=== PATIENT | female | born 1960 | race Caucasian/White ===

== ENCOUNTER 2018-02-14 17:12 | Observation (INO) ==
[2018-02-14] MEDS ORDERED: Ketorolac 10 MG Tablet PO ONE (19:02)
[2018-02-14] MEDS ORDERED: Sod Chloride 0.9% Inj 1,000 ML IV.SIG ONE (19:02)
[2018-02-14] MEDS ORDERED: Morphine Inj 4 MG/ML Vial IV.PUSH ONE (19:02)
--- NOTE | 2018-02-14 20:11 | ED ---
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 Patient states it started on the right side and now feels like a band across her abdomen and her back. She endorses decreased appetite. She states that she is not passing gas. She denies fever, chills, nausea, vomiting, constipation or diarrhea. She denies dysuria or hematuria. She complains of feeling bloated. She had a normal bowel movement on Tuesday. No bowel movement Tuesday. She states that she took a stool softener, laxative and enema and has had watery stools since then. She also complains of a new onset rash on the abdomen. It is nonpruritic. 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 She is followed by Dr. Ortega at the [facility] in [place]. She states she has an upcoming 1 year post transplant appointment upcoming in March. She was seen on outpatient basis at the [facility] in [place] today, had lab work and a CT and was sent here for admission. Related Data Home Medications Medication Instructions Recorded Confirmed aspirin [Aspir-81] 81 mg PO DAILY 02/14/18 02/14/18 atenolol 50 mg PO HS 02/14/18 02/14/18 benazepril 40 mg PO DAILY 02/14/18 02/14/18 cholecalciferol (vitamin D3) 5,000 unit PO DAILY 02/14/18 02/14/18 [Vitamin D3] cyclosporine 100 mg PO BID 02/14/18 02/14/18 dexamethasone 0.5 mg PO Q6H 02/14/18 02/14/18 fluconazole 200 mg PO DAILY 02/14/18 02/14/18 furosemide 20 mg PO DAILY 02/14/18 02/14/18 gabapentin 400 mg PO DAILY 02/14/18 02/14/18 lamotrigine 300 mg PO HS 02/14/18 02/14/18 levothyroxine 150 mcg PO DAILY 02/14/18 02/14/18 magnesium oxide 400 mg PO BID 02/14/18 02/14/18 exwlmhheggwt-xly-qukx-FA-vit K 02/14/18 [Multi-Day Plus Minerals] paroxetine HCl 40 mg PO DAILY 02/14/18 02/14/18 pravastatin 20 mg PO HS 02/14/18 02/14/18 ropinirole 5 mg PO TID 02/14/18 02/14/18 sulfamethoxazole-trimethoprim 1 tab PO DAILY 02/14/18 02/14/18 [Bactrim DS] valacyclovir 500 mg PO BID 02/14/18 02/14/18 zolpidem 10 mg PO HS 02/14/18 02/14/18 Allergies Allergy/AdvReac Type Severity Reaction Status Date / Time penicillin G Allergy Swelling Verified 02/14/18 17:31 of Lip/Tongue/Throat Review of Systems Except as stated in HPI: all other systems reviewed are negative [facility] Medical History Medical History History of hysterectomy (Acute) 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 SKIN: Focused skin assessment warm/dry. Scattered, scant, maculopapular, blanching, erythematous rash across the abdomen. HEAD: Normocephalic. EYES: No scleral icterus. No injection or drainage. NECK: Supple, trachea midline. No JVD or lymphadenopathy. CARDIOVASCULAR: Regular rate and rhythm without murmurs, gallops, or rubs. RESPIRATORY: Breath sounds equal bilaterally. No accessory muscle use. GASTROINTESTINAL: Abdomen soft, mildly distended in the upper quadrants. Tender to palpation in bilateral upper quadrants. Hypoactive bowel sounds. MUSCULOSKELETAL: No cyanosis, or edema. BACK: Nontender without obvious deformity. No CVA tenderness. Course Initial Documented Vital Signs Temperature 98.3 F 02/14/18 17:31 Pulse Rate 89 02/14/18 17:31 Respiratory Rate 20 07/17/18 17:31 Blood Pressure 155/57 H 02/14/18 17:31 Pulse Oximetry 98 02/14/18 17:31 Last Documented Vital Signs Temperature 98.3 F 02/14/18 17:31 Pulse Rate 90 02/14/18 18:52 Respiratory Rate 24 02/14/18 18:52 Blood Pressure 176/71 H 02/14/18 18:52 Pulse Oximetry 97 02/14/18 19:02 Medical Decision Making LAURIE Attestation LAURIE supervised visit: Yes Attestation: I, Dr. Wang, have reviewed the advance practice practitioner's documentation and am in agreement, met with the patient face to face, made the diagnosis, and the medical decision making was done by me. The patient was initially evaluated by Dinora, the physician certified registered dental assistant. Please see their complete history and physical. *My assessment and Findings: The patient presents with history of abdominal pain and bloating that began 3 days ago. The patient's past medical history is significant for having CML status post bone marrow transplant in March 2017 with a history of complications of yexdv-nylevr-qwmm disease. The patient is followed by the [facility] for her oncology care. The patient reports that she had outpatient testing earlier today that was abnormal was told to come to the emergency department for admission. The patient's examination is remarkable for a midepigastric abdominal pain. During the course of the patient's emergency department visit, the patient's history, examination, and differential diagnosis were reviewed with the patient. The patient was placed on a surveillance system monitor with oximetry and frequent blood pressure monitoring. The patient had IV access obtained and blood work sent for analysis. The patient was initially provided pain medication, normal saline IV fluids. Radiology studies were reviewed and remarkable for a CT scan done earlier today as an outpatient that shows wall thickening of the second portion of the duodenum with abnormal inflammatory changes surrounding the pancreas and extending to the hepatoduodenal ligament. The patient's results were discussed with the patient, including the plan of care. I explained that further testing and/ or monitoring is indicated based on the patient's history, examination, and/ or laboratory findings. Therefore, I recommended admission for additional evaluation. The patient expressed understanding and was agreeable with this plan. The patient was admitted to the hospital in guarded condition and sent to a bed under the care of service. 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 She was seen on outpatient basis today and sent here for admission. She is followed by a oncologist at the [facility] in [place]. She has a history of graft- versus-host disease, last episode 4 months ago. She states that she was placed on chemotherapy after steroids failed to improve her symptoms. She provides lab work and CT from todays outpatient visit. CT performed on outpatient basis reveals: 1.Wall thickening of the second portion of the duodenum with abnormal inflammation surrounding the pancreas and extending along the hepatoduodenal ligament and extending into the small bowel mesentery. Differential diagnostic considerations include pancreatitis, duodenitis, yokkv-oyqygo-ekkr disease given the history of bone marrow transplant and immunosuppression. Additionally infectious process should be considered. 2. Moderate to severe atherosclerotic disease. Lab work drawn on outpatient basis: CBC: WBC 13.9. RBC 3.72. Hemoglobin 12.2. Hematocrit 36.7. Absolute neutrophils 11.9. CMP: Glucose 35. BUN 18. Creatinine 0.9. LFTs: Bilirubin 1.1. Alk phos 222. AST 60. ALT 66. Amylase 90. Lipase 206. Patient's afebrile on presentation. Physical exam reveals tenderness in the bilateral upper abdominal quadrants. Bowel sounds are hypoactive. IV was established. Patient was administered 4 mg morphine, 4 mg Zofran ODT and 1 L normal saline. Consult placed with the on-call oncologist. I discussed the patient with Dr. Alexander. She agrees to accept the patient to the medicine service. Please see medicine and oncology notes for disposition. Differential Diagnosis Differential Diagnosis: Gastroenteritis versus bowel obstruction versus paralytic ileus versus pancreatitis versus biliary obstruction versus graft- versus-host disease versus other Discharge Plan Discharge Disposition Patient Disposition: 30 Still Patient Discharge Condition Condition: Stable Discharge Details Diagnosis: Abdominal pain Physicians Team ED Provider: Yisel Wang ED Midlevel Provider: Dinora Magaña Primary Care Provider: UNKNOWN, Attending Provider: Jaja Alexander Other Providers: Roddy Steele Status ED Status: Admitted Observation Patient
[2018-02-14] MEDS ORDERED: Bisacodyl 10 MG Supp RECTAL PRN (21:33)
[2018-02-14] MEDS ORDERED: Temazepam 15 MG Capsule PO PRN (21:33)
--- NOTE | 2018-02-14 21:53 | P.HP ---
History of Present Illness Service: [facility] Primary Care Physician: UNKNOWN Chief Complaint: abd pain History of Present Illness: 57-year-old female with a past medical history significant for CML status post bone marrow transplant, recent diagnosis of eleqe-qakapd-hpdp disease (finished chemotherapy treatment in December), hypertension, hyperlipidemia, hypothyroidism and restless leg syndrome presents to the emergency department from her primary care provider's office. The patient was seen by her primary care doctor because she had abdominal pain and chills that began on Tuesday night. The pain is worse with palpation and has been progressively worsening since Tuesday. She endorses multiple bouts of emesis on Tuesday. Outpatient labs showed a mild leukocytosis with left shift and CT of the abdomen/pelvis significant for wall thickening of the second portion of the duodenum with abnormal inflammation surrounding the pancreas and hepatoduodenal ligament extending into the mesentery. The patient denies any chest pain or shortness of breath. Positive diarrhea after taking laxatives and stool softeners. No lateralizing signs/ symptoms. Inpatient Certification: I certify that the inpatient services were ordered in accordance with Medicare regulations governing the order. This includes certification that hospital inpatient services are reasonable and necessary and in the case of services not specified as inpatient-only under 42 CFR 419.22(n), that they are appropriately provided as inpatient services in accordance to with the 2-midnight benchmark under 43 CFR 412.3(e) Review of Systems All other systems reviewed negative except as stated in HPI [facility] - History History Provided By: Patient - Medical History Medical History: Medical History (Last Updated 02/14/18 @ 19:01 by Mirna Pritchett RN) History of hysterectomy Host versus graft disease Hypertension Leukemia - Surgical History Surgical History: Surgical History (Last Updated 02/14/18 @ 19:01 by Mirna Pritchett RN) History of bone marrow transplant History of cholecystectomy - Tobacco History Tobacco Use In Past 30 Days: No Smoking Status: Former smoker Tobacco Type: Cigarettes - Alcohol History How Often Do You Have a Drink Containing Alcohol: Never - Travel History Recent Travel in the [place] Within the Last 8 Weeks: No Recent Travel Out of the Country Within the Last 8 Weeks: No - Immunization History Tetanus Immunization: Unsure Hx Influenza Vaccine This Season: Yes Medications and Allergies Active Medications: Active Medications Al Hydroxide/Mg Hydroxide (Milk Of Magnandre Liq) 30 ml PO Q12H PRN PRN Reason: Mild Constipation Atenolol (Tenormin) 50 mg PO HS [facility] Bisacodyl (Dulcolax Supp) 10 mg RECTAL DAILY PRN PRN Reason: SEVERE CONSITIPATION Cyclosporine (Sandimmune Liq) 100 mg PO BID [facility] Fluconazole (Diflucan) 200 mg PO DAILY [facility] Furosemide (Lasix) 20 mg PO DAILY [facility] Gabapentin (Neurontin) 400 mg PO DAILY [facility] Lactulose (Lactulose Liq) 30 ml PO DAILY PRN PRN Reason: SEVERE CONSITIPATION Levothyroxine Sodium (Synthroid) 150 mcg PO DAILY [facility] Non-Formulary Medication (Benazepril [Benazepril]) 40 mg PO DAILY [facility] Non-Formulary Medication (Dexamethasone [Dexamethasone]) 0.5 mg PO Q6H [facility] Non-Formulary Medication (Lamotrigine [Lamotrigine]) 300 mg PO HS [facility] Non-Formulary Medication (Ropinirole [Ropinirole]) 5 mg PO TID [facility] Ondansetron HCl (Zofran Inj) 4 mg IV.PUSH Q6H PRN PRN Reason: NAUSEA OR VOMITING Paroxetine HCl (Paxil) 40 mg PO DAILY [facility] Pravastatin Sodium (Pravachol) 20 mg PO HS [facility] Senna/Docusate Sodium (Chantel-Colace) 1 tab PO BID [facility] Sennosides (Senokot) 17.2 mg PO Q12H PRN PRN Reason: Moderate Constipation Temazepam (Restoril) 15 mg PO HS PRN PRN Reason: INSOMNIA Trimethoprim/Sulfamethoxazole (Bactrim Ds) 1 tab PO DAILY [facility] Valacyclovir HCl (Valtrex) 500 mg PO BID [facility] Zolpidem Tartrate (Ambien) 10 mg PO HS [facility] Allergies Allergy/AdvReac Type Severity Reaction Status Date / Time penicillin G Allergy Swelling Verified 02/14/18 17:31 of Lip/Tongue/Throat Home Medications Medication Instructions Recorded Confirmed Type aspirin [Aspir-81] 81 mg PO DAILY 02/14/18 02/14/18 History atenolol 50 mg PO HS 02/14/18 02/14/18 History benazepril 40 mg PO DAILY 02/14/18 02/14/18 History cholecalciferol (vitamin D3) 5,000 unit PO DAILY 02/14/18 02/14/18 History [Vitamin D3] cyclosporine 100 mg PO BID 02/14/18 02/14/18 History dexamethasone 0.5 mg PO Q6H 02/14/18 02/14/18 History fluconazole 200 mg PO DAILY 02/14/18 02/14/18 History furosemide 20 mg PO DAILY 02/14/18 02/14/18 History gabapentin 400 mg PO DAILY 02/14/18 02/14/18 History lamotrigine 300 mg PO HS 02/14/18 02/14/18 History levothyroxine 150 mcg PO DAILY 02/14/18 02/14/18 History magnesium oxide 400 mg PO BID 02/14/18 02/14/18 History cvjcrlsbcquy-fia-iljd-FA-vit K 02/14/18 History [Multi-Day Plus Minerals] paroxetine HCl 40 mg PO DAILY 02/14/18 02/14/18 History pravastatin 20 mg PO HS 02/14/18 02/14/18 History ropinirole 5 mg PO TID 02/14/18 02/14/18 History sulfamethoxazole-trimethoprim 1 tab PO DAILY 02/14/18 02/14/18 History [Bactrim DS] valacyclovir 500 mg PO BID 02/14/18 02/14/18 History zolpidem 10 mg PO HS 02/14/18 02/14/18 History Exam Vital signs: Vital Signs 02/14/18 17:31 02/14/18 18:52 02/14/18 19:02 Temperature 98.3 F Pulse Rate 89 90 Respiratory Rate 20 24 Blood Pressure 155/57 H 176/71 H Pulse Oximetry 98 97 97 Intake & Output 02/14/18 02/14/18 02/15/18 06:59 18:59 06:59 Weight 89.811 kg Other: Date of Last Bowel Movement 02/14/18 Narrative: Gen.: No acute distress Head: Normocephalic. Atraumatic. EENT: Pupils equal round and reactive to light. Nose without drainage. Airway intact. Throat without injection. Cardiovascular: Regular rate and rhythm. No murmurs, rubs or gallops. Respiratory: Lungs clear to auscultation bilaterally. No wheezes or rhonchi. Abdomen: Soft, diffusely tender to palpation, nondistended. No peritoneal signs. Musculoskeletal: No gross deformities. No edema. Skin: No obvious rashes or erythema. Neuro: Sensory and motor grossly intact. Cranial nerves II through XII grossly intact. Psych: Appropriate mood and affect Caprini VTE Risk Assessment Caprini VTE Risk Assessment: No/Low Risk (score <= 1) Caprini Risk Assessment Model: Point Value = 1 Point Value = 2 Point Value = 3 Point Value = 5 Age 41-60 Minor surgery BMI > 25 kg/m2 Swollen legs Varicose veins or History of unexplained or recurrent spontaneous Oral contraceptives or hormone replacement Sepsis (< 1 month) Serious lung disease, including pneumonia (< 1 month) Abnormal pulmonary function Acute myocardial infarction Congestive heart failure (< 1 month) History of inflammatory bowel disease Medical patient at bed rest Age 61-74 Arthroscopic surgery Major open surgery (> 45 min) Laparoscopic surgery (> 45 min) Malignancy Confined to bed (> 72 hours) Immobilizing plaster cast Central venous access Age >= 75 History of VTE Family history of VTE Factor V Leiden Prothrombin [id number] Lupus anticoagulant Anticardiolipin antibodies Elevated serum homocysteine Heparin-induced thrombocytopenia Other congenital or acquired thrombophilia Stroke (< 1 month) Elective arthroplasty Hip, pelvis, or leg fracture Acute spinal cord injury (< 1 month) Prophylaxis Regimen: Total Risk Factor Score Risk Level Prophylaxis Regimen 0-1 Low Early ambulation 2 Moderate Order ONE of the following: *Sequential Compression Device (SCD) *Heparin 5000 units SQ BID 3-4 Higher Order ONE of the following medications: *Heparin 5000 units SQ TID *Enoxaparin/Lovenox 40 mg SQ daily (WT < 150 kg, CrCl > 30 mL/min) *Enoxaparin/Lovenox 30 mg SQ daily (WT < 150 kg, CrCl > 10-29 mL/min) *Enoxaparin/Lovenox 30 mg SQ BID (WT < 150 kg, CrCl > 30 mL/min) AND/OR *Sequential Compression Device (SCD) 5 or more Highest Order ONE of the following medications: *Heparin 5000 units SQ TID (Preferred with Epidurals) *Enoxaparin/Lovenox 40 mg SQ daily (WT < 150 kg, CrCl > 30 mL/min) *Enoxaparin/Lovenox 30 mg SQ daily (WT < 150 kg, CrCl > 10-29 mL/min) *Enoxaparin/Lovenox 30 mg SQ BID (WT < 150 kg, CrCl > 30 mL/min) AND *Sequential Compression Device (SCD) Assessment and Plan - Plan Assessment/plan: 1. Abdominal pain Outpatient CT scan results as documented in HPI Differential diagnosis includes pancreatitis, duodenitis, graft versus host disease or infectious process Patient with mild leukocytosis despite immunosuppression Mild transaminitis with total bilirubin of 1.0 Cipro/Flagyl Pain control 2. CML status post bone marrow transplant/history of ectdg-jiokxu-buhb disease Patient's oncologist is Dr. Ortega at [facility], Attempts were made to contact Dr. Ortega prior to the patient coming to the hospital however he was unable to be reached Patient completed chemotherapy for graft versus host disease in December of this year Oncology consulted, appreciate recommendations Continue home immunosuppressants 3. Hypertension/hyperlipidemia/hypothyroidism/restless leg syndrome Continue home medications FEN Regular diet Electrolytes: Monitor and replete as needed
[2018-02-14] MEDS: Ciprofloxacin 400 MG/200 ML 400 MG/200 ML PIGGYBACK IV.SIG SCH (22:24)
[2018-02-14] MEDS: Morphine Inj 4 MG/ML Vial IV.PUSH PRN (22:27)
[2018-02-15 05:17] LABS: Baso % (Auto) 0.2 % (0.0-2.0); Eos # (Auto) 0.5 th/mm3 (0.0-0.4); Hematocrit 33.7 % (35.0-46.0); Hemoglobin 11.2 gm/dL (11.6-15.3); Lymph % (Auto) 6.4 % (9.0-44.0); Mean Corpuscular HGB Conc 33.2 % (32.0-36.0); Mean Corpuscular Hemoglobin 31.6 pg (27.0-34.0); Mean Platelet Volume 8.4 fL (7.0-11.0); Mono # (Auto) 1.7 th/mm3 (0.0-0.9); Mono % (Auto) 10.5 % (0.0-8.0); Neut # (Auto) 12.6 th/mm3 (1.8-7.7); Neut % (Auto) 79.9 % (16.0-70.0); Platelet Count 212 th/mm3 (150-450); Red Blood Count 3.54 mil/mm3 (4.00-5.30); Red Cell Distribution Width 19.7 % (11.6-17.2); White Blood Count 15.8 th/mm3 (4.0-11.0)
[2018-02-15 05:34] LABS: Alanine Aminotransferase 45 U/L (10-53); Albumin 3.1 g/dL (3.4-5.0); Anion Gap 9 meq/L (5-15); Aspartate Aminotransferase 32 U/L (15-37); Blood Urea Nitrogen 21 mg/dL (7-18); Calcium 8.4 mg/dL (8.5-10.1); Carbon Dioxide 25.8 meq/L (21.0-32.0); Chloride 106 meq/L (98-107); Glomerular Filtration Rate 48 mL/min (>89); Glucose,Random 108 mg/dL (74-106); Potassium 4.1 meq/L (3.5-5.1); Sodium 141 meq/L (136-145)
[2018-02-15 05:35] LABS: Alkaline Phosphatase 204 U/L (45-117); Total Protein 6.1 g/dL (6.4-8.2)
[2018-02-15] MEDS ORDERED: Levothyroxine 150 MCG Tablet PO SCH (06:00)
[2018-02-15] MEDS: Morphine Inj 4 MG/ML Vial IV.PUSH PRN (06:23)
--- NOTE | 2018-02-15 08:51 | MB ---
cc: Roddy Steele MD DATE: 02/15/2018 ATTENDING PHYSICIAN: Dr. 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 HISTORY OF PRESENT ILLNESS: The patient is a 57-year-old female with a history of chronic myelogenous leukemia, status post allogenic bone marrow transplant in November of 2016 who presented to the hospital with a complaint of abdominal pain and chills. She stated that her pain is in the upper abdomen and radiates to the back. It is constant pain associated with chills. She had nausea and vomiting on Tuesday. She had diarrhea 4 times yesterday, which was partly due to a laxative. She went to see her primary physician, Dr. Medina and sent for a CT scan which showed thickening of the second portion of duodenum and inflammatory changes surrounding the pancreas and hepatoduodenal ligament area and extending to the mesentery. She was also noted to have leukocytosis. The nurse practitioner try to reach Dr. Ortega at [facility] yesterday, but could not reach him. The patient was directed to the hospital and subsequently admitted. The patient stated she had a graft versus host disease involving the entire GI tract. She was treated with some immunosuppressive regimen in November. She is still on cyclosporine. She was also on high-dose prednisone, but tapered off around November. PAST MEDICAL HISTORY: 1. Chronic myelogenous leukemia. 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 3. Hypertension. 4. Hyperlipidemia. 5. Hypothyroidism. 6. Restless leg syndrome. PAST SURGICAL HISTORY: 1. Appendectomy. 2. Right knee surgery. 3. Three time right shoulder surgery. 4. 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 5. Hysterectomy. 6. Cholecystectomy. FAMILY HISTORY: One daughter is healthy. No leukemia in the family. SOCIAL HISTORY: Smoked socially, but quit a year ago. Denies alcohol use. ALLERGIES: PENICILLIN. CURRENT MEDICATIONS: 1. Atenolol. 2. Ciprofloxacin. 3. Cyclosporine. 4. Decadron. 5. Diflucan. 6. Lasix. 7. Gabapentin. 8. Lactulose as needed. 9. Lamictal. 10. Levothyroxine. 11. Prinivil. 12. Flagyl. 13. Paxil. 14. Pravachol. 15. Requip. 16. Chantel-Colace. 17. Bactrim. 18. Valtrex. 19. Ambien. REVIEW OF SYSTEMS: CONSTITUTIONAL: Negative. EYES: Negative. ENT: Negative. CARDIOVASCULAR: Denied chest pressure or palpitation. RESPIRATORY: Denied shortness of breath or cough. GASTROINTESTINAL: As above. GENITOURINARY: No dysuria or hematuria. MUSCULOSKELETAL: Negative. HEMATOLOGIC: As above. ENDOCRINE: Negative. DERMATOLOGIC: Has mild rash on the abdominal wall, but not pruritic. PSYCHIATRIC: Negative. NEUROLOGIC: Negative. PHYSICAL EXAMINATION: VITAL SIGNS: Temperature 99.1, blood pressure 120/62, O2 saturation 93% on room air. GENERAL: She is alert, oriented x 3 in no acute distress. HEENT: Atraumatic, normocephalic. Pupils are equal, round, reactive to light. Extraocular muscles intact. No scleral icterus. Oropharynx, dry mucosa. No lesion, no thrush or mucositis. NECK: No thyromegaly. No palpable mass. LYMPHATIC: No palpable cervical, clavicular, axillary, or inguinal lymph nodes. CARDIOVASCULAR: Regular S1, S2. No murmur. LUNGS: Clear to auscultation. No wheezing or rhonchi. ABDOMEN: Soft and nontender. I cannot palpate, tenderness in the midepigastric area. No rebound or rigidity. Positive bowel sounds. Could not palpate liver or spleen. EXTREMITIES: No cyanosis, clubbing, or edema. SKIN: No significant rash noted on abdominal wall. NEUROLOGICAL: Nonfocal. LABORATORY DATA: WBC 15.8, hemoglobin 11.2, platelet count 212. Creatinine 1.16, alkaline phosphatase 204, calcium 8.4. RADIOLOGIC STUDIES: CT abdomen and pelvis [facility] at [facility] 02/14/2018 shows wall thickening of the second portion of the duodenum with abnormal inflammation surrounding the pancreas and extending along the hepatoduodenal ligament and into the small bowel mesentery. ASSESSMENT: 1. Chronic myelogenous leukemia diagnosed 2010. She exhausted all the therapeutic agents including Gleevec, Sprycel and Tasigna. She underwent allogenic bone marrow transplant in 11/2016 at [facility]. The donor was reportedly her brother and was a full matched donor. The patient reportedly remains in remission. She has mild leukocytosis of 15.8 at this time. I doubt that this is recurrent disease. This is most likely an inflammatory reaction. 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 She was diagnosed with graft versus host disease in 09/2017. Reportedly, her whole entire GI tract was involved. She did not have significant rash. She had mouth sores and hoarseness which still has not resolved. She was on prednisone 100 mg daily, but developed significant hyperglycemia and the prednisone was tapered off around November. She has been on cyclosporine. She also was given 5 treatments of "chemo" in November. 3. Abdominal pain with a chill started on Tuesday. Pain radiates to her back and is constant. She had nausea and vomiting on Tuesday. She had diarrhea yesterday, but it was attributed to the laxative. She still has persistent pain in the mid epigastric area controlled with pain medication. CT showed inflammatory changes in the second portion of the duodenum extending along the hepatoduodenal ligament into the small bowel mesentery. The patient has no ill contacts. I suspect this may be a graft versus host disease. Other differentials include infection and duodenitis/pancreatitis. The patient was started on empiric ciprofloxacin and Flagyl. She is on a low-dose Decadron 0.5 mg every 6 hours. She is still on cyclosporine. I am going to check a cyclosporine level. We will try to contact her transplant oncologist, Dr. Ortega at [facility] to see if he has any suggestion. May require further GI workup if no improvement. 4. Hypertension. 5. Hyperlipidemia. 6. Hypothyroidism. RECOMMENDATIONS: 1. Extensive discussion with the patient, reviewed her CT scan. 2. We will contact Dr. Ortega at [facility]. 3. Check cyclosporine level. 4. May need to increase cyclosporine and possibly adding prednisone. Thank you Dr. Alexander for asking me to see this patient. MD BETTE Langley/BEE , 08:12 AM , 08:50 AM MIKALA
[2018-02-15] MEDS ORDERED: Lisinopril 20 MG Tablet PO SCH (09:00)
[2018-02-15] MEDS ORDERED: lamoTRIgine 100 MG Tablet PO SCH (09:00)
[2018-02-15] MEDS ORDERED: valACYclovir 500 MG Tab PO SCH (09:00)
[2018-02-15] MEDS ORDERED: Senna/Docusate Sodium 8.6/50 MG Tablet PO SCH (09:00)
[2018-02-15] MEDS ORDERED: Gabapentin 400 MG Capsule PO SCH (09:00)
[2018-02-15] MEDS ORDERED: Furosemide 20 MG Tablet PO SCH (09:00)
[2018-02-15] MEDS: Ciprofloxacin 400 MG/200 ML 400 MG/200 ML PIGGYBACK IV.SIG SCH (09:11)
--- NOTE | 2018-02-15 13:08 | P.DS ---
<Mercy Babin W - Last Filed: 02/15/18 19:59> Date of admission: 02/14/18 20:31 Primary care physician: UNKNOWN Attending physician on discharge: Felipe Hodgson Brief History from admission: 57-year-old female with a past medical history significant for CML status post bone marrow transplant, recent diagnosis of hylrs-[id number] disease (finished chemotherapy treatment in December), hypertension, hyperlipidemia, hypothyroidism and restless leg syndrome presents to the emergency department from her primary care provider's office. The patient was seen by her primary care doctor because she had abdominal pain and chills that began on Tuesday night. The pain is worse with palpation and has been progressively worsening since Tuesday. She endorses multiple bouts of emesis on Tuesday. Outpatient labs showed a mild leukocytosis with left shift and CT of the abdomen/pelvis significant for wall thickening of the second portion of the duodenum with abnormal inflammation surrounding the pancreas and hepatoduodenal ligament extending into the mesentery. The patient denies any chest pain or shortness of breath. Positive diarrhea after taking laxatives and stool softeners. No lateralizing signs/ symptoms. DS: Diagnosis - Discharge Diagnosis (1) GVHD (graft versus host disease) Status: Acute (2) Abdominal pain Status: Acute DS: Summary Hospital Course: 1. Abdominal pain Outpatient CT scan results Differential diagnosis includes pancreatitis, duodenitis, graft versus host disease or infectious process Patient with mild leukocytosis despite immunosuppression Mild transaminitis with total bilirubin of 1.0 Cipro/Flagyl started Pain control IV Morphine and PO [place] 2. CML status post bone marrow transplant/history of [id number] disease Dr. Steele spoke with patient's oncologist is Dr. Ortega at [facility], [phone]. Dr. Ortega recommends patient be transferred to [place] for further evaluation and treatment Patient completed chemotherapy for graft versus host disease in December of this year Oncology consulted, appreciate recommendations/assistance Continue home immunosuppressants 3. Hypertension/hyperlipidemia/hypothyroidism/restless leg syndrome Continue home medications Dr. Zimmerman discussed case with [place] transfer center who accepts patient and [facility]CP Plan for Hospital to hospital transfer to [facility] today - Time Spent with Patient Total time spent providing and/or coordinating discharge services: - Quality: VTE Deep Vein Thrombosis/Pulmonary Embolism Present on Admission: No Exam Vital signs: Vital Signs 02/14/18 17:31 02/14/18 18:52 02/14/18 19:02 Temperature 98.3 F Pulse Rate 89 90 Respiratory Rate 20 24 Blood Pressure 155/57 H 176/71 H Pulse Oximetry 98 97 97 02/14/18 23:17 02/14/18 23:20 02/15/18 00:38 Temperature 98.2 F Pulse Rate 85 84 Respiratory Rate 16 18 Blood Pressure 122/67 Pulse Oximetry 96 02/15/18 02:00 02/15/18 03:45 02/15/18 04:00 Temperature 99.1 F Pulse Rate 83 95 H Respiratory Rate 18 20 Blood Pressure 128/62 Pulse Oximetry 93 L 02/15/18 06:00 02/15/18 09:11 Temperature 97.9 F Pulse Rate 82 Respiratory Rate 17 18 Blood Pressure 161/71 H Pulse Oximetry Intake & Output 02/14/18 02/15/18 02/15/18 18:59 06:59 18:59 Intake Total 300 / 300 100 / 100 Balance 300 / 300 100 / 100 Weight 89.811 kg 94.5 kg Intake: IV 300 / 300 100 / 100 Cipro 400 MG/200 ML Inj 400 mg 200 / 200 In 200 ml @ 200 mls/hr IV.SIG Q12H GERARDO Rx#:[id number] Flagyl 500 MG Inj 100 ML @ 100 100 / 100 100 / 100 mls/hr IV.SIG Q8H GERARDO Rx#: [id number] Other: # Voids 1 Date of Last Bowel Movement 02/14/18 02/14/18 Narrative: Gen: 57 year old female patient uncomfortable Cardiovascular: Regular rate and rhythm. Respiratory: Lungs clear to auscultation bilaterally. No wheezes or rhonchi. Abdomen: Soft, diffusely tender to palpation, nondistended. No peritoneal signs. Musculoskeletal: No gross deformities. No edema. Skin: No obvious rashes or erythema. Neuro: Sensory and motor grossly intact. Results Procedures completed during hospitalization: none Labs on day of discharge: Labs from last 24 hours 02/15/18 02/15/18 02/15/18 12:12 12:12 04:07 WBC RBC Hgb Hct MCV MCH MCHC RDW Plt Count MPV Neut % (Auto) Lymph % (Auto) Bowie % (Auto) Eos % (Auto) Baso % (Auto) Neut # (Auto) Lymph # (Auto) Bowie # (Auto) Eos # (Auto) Baso # (Auto) WBC Differential Differential Comment Sodium 141 Potassium 4.1 Chloride 106 Carbon Dioxide 25.8 Anion Gap 9 BUN 21 H Creatinine 1.16 H Estimated GFR 48 L Random Glucose 108 H Calcium 8.4 L Total Bilirubin 0.9 AST 32 ALT 45 Alkaline Phosphatase 204 H Lactate Dehydrogenase Pending Total Protein 6.1 L Albumin 3.1 L Cyclosporine Pending 02/15/18 04:07 WBC 15.8 H RBC 3.54 L Hgb 11.2 L Hct 33.7 L MCV 95.0 MCH 31.6 MCHC 33.2 RDW 19.7 H Plt Count 212 MPV 8.4 Neut % (Auto) 79.9 H Lymph % (Auto) 6.4 L Bowie % (Auto) 10.5 H Eos % (Auto) 3.0 Baso % (Auto) 0.2 Neut # (Auto) 12.6 H Lymph # (Auto) 1.0 Bowie # (Auto) 1.7 H Eos # (Auto) 0.5 H Baso # (Auto) 0.0 WBC Differential . Differential Comment Auto diff final Sodium Potassium Chloride Carbon Dioxide Anion Gap BUN Creatinine Estimated GFR Random Glucose Calcium Total Bilirubin AST ALT Alkaline Phosphatase Lactate Dehydrogenase Total Protein Albumin Cyclosporine <Felipe Hodgson - Last Filed: 02/20/18 23:43> Date of admission: 02/14/18 20:31 Primary care physician: UNKNOWN DS: Summary Hospital Course: Patient examined. Assessment and plan formulated with Mercy Babin PA-C. I agree with the above. - Time Spent with Patient Total time spent providing and/or coordinating discharge services: Greater than 30 minutes Discharge Plan - Discharge Order Discharge Orders: Discharge Order (Routine); Ordered 02/15/18 Ordered By: Felipe Hodgson - Discharge Details Anticipated Discharge Date: 02/15/18 Discharge Comment: Pt to transfer to [facility]. Pt follows with Dr. Ortega. - Physicians Team Primary Care Provider: UNKNOWN, Attending Provider: Felipe Hodgson Other Providers: Roddy Steele MD
[2018-02-15] MEDS ORDERED: Atenolol 50 MG Tablet PO SCH (21:00)
== END 2018-02-15 18:06 | disposition short-term general hospital (02) ==
LOC: NEDA 17:12 → N06 17:12 → NEPE 17:12 → N06 22:56
PROVIDERS: ADMIT Hospitalist; ATTEND Hospitalist